=== PATIENT | female | born 1960 | race Caucasian/White ===

== ENCOUNTER 2017-01-29 11:07 | Observation (INO) | payer OTHER ==
[~2017-01-29] VITALS: Ht 154.9 cm; Wt 95.6 kg
[2017-01-29] VITALS (9 sets, daily range): BP systolic 101–128; BP diastolic 63–82
--- NOTE | 2017-01-29 12:49 | ED ORDER SUMMARY ---
..... Patient: ANNETTE CARMEN OrderSheet [facility] VisitID: [id number] [place] [address] 56y, F Registration Date/Time: 01/29/2017 ORDER SHEET Weight: 93.4 kg (stated) Allergies: Phenobarbital GENERAL ORDERS: CBC w Diff Urgent (11:01/29/2017 Arianna Olguin) (Ack 11:21 Brian) (11:52 SStone R.N.) CMP Urgent (11:01/29/2017 Arianna Olguin) (Ack 11:21 Brian) (11:52 SStone R.N.) UA-Culture if indicated Urgent (:01/29/2017 Arianna Olguin) (Ack 11:21 Brian) (12:44 SStone R.N.) PT with INR Urgent (11:01/29/2017 Arianna Olguin) (Ack 11:21 Brian) (11:52 SStone R.N.) Lipase Urgent (11:01/29/2017 Arianna Olguin) (Ack 11:21 Brian) (11:52 SStone R.N.) US Abdomen Limited (No) Urgent (11:01/29/2017 Arianna Olguin) (Ack 11:58 Brian) MEDICATION ORDERS: Phenergan IV 12.5 mg (HIGH ALERT MEDICATION, NOW) (12:01/29/2017 Arianna Olguin) (12:44 SStone R.N.) IV FLUIDS: IV NS : initial bolus 1000 mL (1000 mL/hr), then none - for X1 (NOW) (11:01/29/2017 Arianna Olguin) (11:44 SStone R.N.) Morphine IV 4 mg (HIGH ALERT MEDICATION, NOW) (11:01/29/2017 Arianna Olguin) (11:44 SStone R.N.) Zofran IV 4 mg (NOW) (11:01/29/2017 Arianna Olguin) (11:42 SStone R.N.) Morphine IV 4 mg (HIGH ALERT MEDICATION, NOW) (12:35 01/29/2017 Arianna lOguin) (12:43 SStone R.N.) Zosyn IV 4.5 gm/100mL (NOW) (14:41 01/29/2017 Arianna Olguin) (Cancelled: Duplicate Order14:44 Arianna Olguin) IV Lactated Ringers : initial bolus none -, then 125 mL/hr (NOW) (14:42 01/29/2017 Arianna Olguin) (14:50 SStone R.N.) Flagyl IV 500 mg/100mL (NOW) (14:44 01/29/2017 Arianna Olguin) Levaquin IV 750 mg/150 mL (NOW) (14:44 01/29/2017 Arianna Olguin) (14:51 SStone R.N.) Morphine IV 4 mg (NOW) (16:08 01/29/2017 SStone R.N. verbal order read back to Arianna Olguin) (16:08 SStone R.N.) ORDER SHEET NOTES: [Electronically signed by Angelique Monzon R.N. (16:12 01/29/2017)] [Electronically signed by Jax Govea Dr. (22:08 01/29/2017)] [Electronically locked/signed by Angelique Monzon R.N. (16:12 01/29/2017)]
--- NOTE | 2017-01-29 12:49 | ED CLINICAL REPORT ---
Clinical Report - Physicians/Mid Levels [facility] [address] [place] [address] 01/29/2017 11:12 Patient: ANNETTE CARMEN Time Seen: 1120. Arrived- By private vehicle. Historian- patient. HISTORY OF PRESENT ILLNESS Chief Complaint: ABDOMINAL PAIN. At its maximum, severity described as moderate. When seen in the E.D., severity described as moderate. Modifying factors. Not worsened by anything. Not relieved by anything. It is described as sharp. No radiation. It is described as located in the epigastric area. This started yesterday and is still present and worsening. It was abrupt in onset and has been intermittent but is not gone now. The patient has had nausea. No loss of appetite, vomiting or diarrhea. No additional abdominal pain. No recent travel. Similar symptoms previously: Once (about a week ago). Recent medical care: The patient was seen recently by a health care provider. REVIEW OF SYSTEMS No constipation, black stools, hematemesis, bloody stools or fever. No chest pain, difficulty breathing or chills. All systems otherwise negative, except as recorded above. PAST HISTORY See nurses notes. SOCIAL HISTORY Never smoker. No alcohol use or drug use. No recent travel. Is a local resident. FAMILY HISTORY No family history of gall bladder problems. ADDITIONAL NOTES The nursing notes have been reviewed. PHYSICAL EXAM Vital Signs: 01/29/2017 11:19 BP: 151/102. HR: 62. RR: 22. O2 saturation: 100%. Temp: 97.8 F. Pain level now: 10/10. Blood pressure normal. Oxygen saturation normal. Appearance: Alert. Oriented X3. No acute distress. Eyes: Pupils equal, round and reactive to light. Scleral icterus. Eyes normal inspection. ENT: Ears normal. Nose normal. Pharynx normal. Neck: Normal inspection. Neck supple. CVS: Normal heart rate and rhythm. Heart sounds normal. Pulses normal. Respiratory: No respiratory distress. Breath sounds normal. Chest nontender. No rales, rhonchi or wheezes. Abdomen: Soft. Moderate tenderness in the right upper quadrant. Positive Piña's sign. No guarding, rebound tenderness or obturator or psoas sign present. Bowel sounds normal. No organomegaly. No mass. Skin: Skin warm and dry. Normal skin color. No rash. Normal skin turgor. Extremities: Extremities exhibit normal ROM. No lower extremity edema. Neuro: Oriented X 3. No motor deficit. No sensory deficit. LABS, X-RAYS, AND EKG Abdominal Sonogram: (PROCEDURE: US ABDOMEN ULTRASOUND-LIMITED INDICATION: EPIGASTRIC ABDO PAIN TECHNIQUE: No scale and color Doppler sonographic images were obtained of the right upper quadrant. COMPARISON: None. FINDINGS: The liver is at the upper limits of normal and mildly hyperechoic in echo texture. No mass or biliary dilatation. There is a 3.9 cm non mobile gallstone in the neck of the gallbladder despite change in patient position. The gallbladder wall is variable size but ranges up to 4.6 mm. The gallbladder itself is elongated measuring up to 16.6 cm in length. Internally, there is dependent sludge and occasional septation. The gallbladder wall is slightly hyperemic. There was a positive Piña's sign per the technologist. No extrahepatic biliary dilatation. Common hepatic duct measures about 4.5 mm. Common bile duct was not well seen due to gallstone shadowing. The visible portion of the inferior vena cava, abdominal aorta, and portal vein appear normal with appropriate direction of flow in the portal vein. The right kidney is normal measuring 10.8 cm. No free fluid in the right upper quadrant. IMPRESSION: 1. Findings suggestive of acute calculus cholecystitis. 2. Minimal hepatic steatosis.). The study was independently viewed by me and interpreted by the radiologist. The study was discussed with the radiologist (via phone and pacs). Laboratory Tests: CBC w Diff: (MINA: 01/29/2017 11:25) ( MsgRcvd 01/29/2017 11:42) Final results Test Result Flag Units (Reference) WHITE BLOOD COUNT 13.2 H K/uL (4.5-11.5) RED BLOOD COUNT 4.23 M/uL (4.00-5.20) HEMOGLOBIN 12.7 gm/dL (12.0-16.0) HEMATOCRIT 37.5 % (36.0-46.0) MEAN CELL VOLUME 89 fL (80-100) MEAN CORPUSCULAR HGB 30 pg (26-34) MEAN CORPUSCULAR HGB CONC 34 g/dL (31-37) RED CELL DISTRIBUTION WIDTH 13.9 % (11.6-14.8) PLATELET COUNT 362 K/uL (150-400) NEUTROPHIL % 83.6 H % (50-75) LYMPH % 10.5 L % (25-40) MONO % 5.5 % (3-14) EOSINOPHIL % 0.1 % (0-4) BASOPHIL % 0.3 % (0-2) PT with INR: (MINA: 01/29/2017 11:25) ( [facility] 01/29/2017 12:15) Final results Test Result Flag Units (Reference) INR 0.9 (0.8-1.2) Low Intensity Therapy: INR 1.5-2.0 PT range 18.5-23.1Mod.Intensity Therapy: INR 2.0-3.0 PT range 23.1-31.5High Intensity Therapy: INR 2.5-3.5 PT range 27.4-35.5High Intensity Therapy 2: INR 3.0-4.0 PT range 31.5-39.3 CMP: (MINA: 01/29/2017 11:25) ( [facility] 01/29/2017 11:53) Final results Test Result Flag Units (Reference) GLUCOSE 108 mg/dL (70-110) BUN 12 mg/dL (7-18) CREATININE 0.9 mg/dL (0.6-1.3) Estimated GFR >60 mL/min Estimated GFR- >60 mL/min Note: Persistent reduction over 3 months in eGFR<60 mL/min/1.73 m2 defines CKD. Patients with eGFR values>=60 mL/min/1.73 m2 may also have CKD if evidence ofpersistent proteinuria. Additional information may be foundat www.kidney.org. SODIUM 139 mmol/L (136-145) POTASSIUM 3.8 mmol/L (3.5-5.1) CHLORIDE 100 mmol/L (98-107) CARBON DIOXIDE 28 mmol/L (21-32) CALCIUM 9.3 mg/dL (8.5-10.1) TOTAL PROTEIN 8.4 H g/dL (6.4-8.2) ALBUMIN 3.6 g/dL (3.3-5.0) BILIRUBIN, TOTAL 0.4 mg/dL (0.0-1.0) ALKALINE PHOSPHATASE 98 U/L (46-116) AST (SGOT) 22 U/L (15-37) ALT (SGPT) 37 U/L (12-78) LIPASE 141 U/L (73-393) . PROGRESS AND PROCEDURES Course of Care: the patient is a pleasant 56-year-old female presented for evaluation of epigastric abdominal pain. At this time differential diagnosis includes acute cholecystitis, cholelithiasis, hepatitis, and urinary tract infection. Patient be evaluated laboratory studies including ULTRASOUND of the right upper quadrant of the abdomen. Patient is agreeable to the treatment plan. Patient is nontoxic. patient's workup was remarkable for the findings above. Patient with acute cholecystitis. Spoke to Dr. Campoverde the general surgeon who recommended patient be admitted under his service. abdomen orders have been placed. Patient has been started on antibiotics per general surgery's recommendations. White count is noted to be elevated at 13.2. Patient's liver enzymes and lipase is noted to be normal. Had a discussion with the patient in regards to herworkup here in emergency department including diagnosis, and plan of care. All questions have been answered. The patient expressed understanding of these instructions and was agreeable to them. Prior to patient's departure from the emergency department she is noted to have improved symptoms with pain. Patient continues to be nontoxic and in no acute distress. Patient is stable for the floor. Do not feel patient needs to be admitted to intensive care unit. Critical care performed (35 minutes). Time is exclusive of separately billable procedures. Time includes: direct patient care, patient reassessment, coordination of patient care, review of patient's medical records, medical consultation, family consultation regarding treatment decisions and documentation of patient care. Disposition: Discharged. Condition: good. (Electronically signed by Jax Govea Dr. 01/29/2017 22:08)
--- NOTE | 2017-01-29 12:49 | ED ORDER SUMMARY ---
..... Patient: ANNETTE CARMEN OrderSheet [facility] VisitID: [id number] [place] [address] 56y, F Registration Date/Time: 01/29/2017 ORDER SHEET Weight: 93.4 kg (stated) Allergies: Phenobarbital GENERAL ORDERS: CBC w Diff Urgent (11:01/29/2017 Arianna Olguin) (Ack 11:21 Brian) (11:52 SStone R.N.) CMP Urgent (11:01/29/2017 Arianna Olguin) (Ack 11:21 Brian) (11:52 SStone R.N.) UA-Culture if indicated Urgent (:01/29/2017 Arianna Olguin) (Ack 11:21 Brian) (12:44 SStone R.N.) PT with INR Urgent (11:01/29/2017 Arianna Olguin) (Ack 11:21 Brian) (11:52 SStone R.N.) Lipase Urgent (11:01/29/2017 Arianna Olguin) (Ack 11:21 Brian) (11:52 SStone R.N.) US Abdomen Limited (No) Urgent (11:01/29/2017 Arianna Olguin) (Ack 11:58 Brian) MEDICATION ORDERS: Phenergan IV 12.5 mg (HIGH ALERT MEDICATION, NOW) (12:01/29/2017 Arianna Olguin) (12:44 SStone R.N.) IV FLUIDS: IV NS : initial bolus 1000 mL (1000 mL/hr), then none - for X1 (NOW) (11:01/29/2017 Arianna Olguin) (11:44 SStone R.N.) Morphine IV 4 mg (HIGH ALERT MEDICATION, NOW) (11:01/29/2017 Arianna Olguin) (11:44 SStone R.N.) Zofran IV 4 mg (NOW) (11:01/29/2017 Arianna Olguin) (11:42 SStone R.N.) Morphine IV 4 mg (HIGH ALERT MEDICATION, NOW) (12:35 01/29/2017 Arianna Olguin) (12:43 SStone R.N.) Zosyn IV 4.5 gm/100mL (NOW) (14:41 01/29/2017 Arianna Olguin) (Cancelled: Duplicate Order14:44 Arianna Olguin) IV Lactated Ringers : initial bolus none -, then 125 mL/hr (NOW) (14:42 01/29/2017 Arianna Olguin) (14:50 SStone R.N.) Flagyl IV 500 mg/100mL (NOW) (14:44 01/29/2017 Arianna Olguin) Levaquin IV 750 mg/150 mL (NOW) (14:44 01/29/2017 Arianna Olguin) (14:51 SStone R.N.) Morphine IV 4 mg (NOW) (16:08 01/29/2017 SStone R.N. verbal order read back to Arianna Olguin) (16:08 SStone R.N.) ORDER SHEET NOTES: [Electronically signed by Angelique Monzon R.N. (16:12 01/29/2017)] [Electronically signed by Jax Govea Dr. (22:08 01/29/2017)] [Electronically locked/signed by Angelique Monzon R.N. (16:12 01/29/2017)]
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
--- NOTE | 2017-01-29 13:34 | DIAGNOSTIC IMAGING REPORT ---
PROCEDURE: US ABDOMEN ULTRASOUND-LIMITED INDICATION: EPIGASTRIC ABDO PAIN TECHNIQUE: No scale and color Doppler sonographic images were obtained of the right upper quadrant. COMPARISON: None. FINDINGS: The liver is at the upper limits of normal and mildly hyperechoic in echo texture. No mass or biliary dilatation. There is a 3.9 cm non mobile gallstone in the neck of the gallbladder despite change in patient position. The gallbladder wall is variable size but ranges up to 4.6 mm. The gallbladder itself is elongated measuring up to 16.6 cm in length. Internally, there is dependent sludge and occasional septation. The gallbladder wall is slightly hyperemic. There was a positive Piña's sign per the technologist. No extrahepatic biliary dilatation. Common hepatic duct measures about 4.5 mm. Common bile duct was not well seen due to gallstone shadowing. The visible portion of the inferior vena cava, abdominal aorta, and portal vein appear normal with appropriate direction of flow in the portal vein. The right kidney is normal measuring 10.8 cm. No free fluid in the right upper quadrant. IMPRESSION: 1. Findings suggestive of acute calculus cholecystitis. 2. Minimal hepatic steatosis. 3. Findings discussed with Dr. Govea in the emergency room.
--- NOTE | 2017-01-29 16:45 | NUR ---
PT ARRIVED TO ROOM 202 AT 1602 VIA STRETCHER AND CLASSIFIED ADVERTISING CLERK. A&Ox4. PT ABLE TO WALK FROM STRETCHER TO BED WITH SBA. STATES SHE FELT DIZZY. C/O ABDOMINAL PAIN THAT WAS TOLERABLE. AT SIDE. PT MADE COMFORTABLE IN BED. LEVAQUIN IV RUNNING AND IVF'S TRANSFERRED FROM ED. ED RN REPORTS PT HAS ORDER FOR FLAGYL PREOP AND IT WAS NOT GIVEN IN ED. I HAVE SEEN NO ORDERS FOR THIS MEDICATION AND SO IT WAS NOT GIVEN. LEVAQUIN FINISHED BEFORE SURGERY. CONSENT SIGNED AND WITNESSED. PT HAD NO FURTHER QUESTIONS ABOUT PROCEDURE. PT TO PREOP AT 1637 AND AT SIDE.
[2017-01-29] MEDS ORDERED: NORCO1 TA1 PO (18:39)
--- NOTE | 2017-01-29 18:40 | Provider's Discharge Care Plan ---
Problem, Goal, Plan Problem List 1. Acute cholecystitis
--- NOTE | 2017-01-29 18:40 | Provider's Discharge Care Plan ---
Problem, Goal, Plan Problem List 1. Acute cholecystitis
--- NOTE | 2017-01-29 18:44 | DIAGNOSTIC IMAGING REPORT ---
PROCEDURE: XR INTRAOPERATIVE LAP BRENNAN INDICATION: LAP BRENNAN WITH IOC TECHNIQUE: Intraoperative fluoroscopy provided for Dr. Osorio performing an intraoperative cholangiogram following cholecystectomy. Total fluoroscopy time 12 seconds. Cumulative dose 6.9 mGy. COMPARISON: None. FINDINGS: Four intraoperative fluoroscopic spot images of the right upper quadrant of the abdomen demonstrate cannulation of the cystic duct stump and opacification of the intrahepatic and extrahepatic biliary tree. There are no filling defects. There is normal passage of contrast into the duodenum. IMPRESSION: 1. Negative intraoperative cholangiogram.
--- NOTE | 2017-01-29 19:13 | NUR ---
ACTIVELY MOVING ABOUT, RESTLESS ON ARRIVAL TO PACU. CO SHOULDER DISCOMFORT, INABILITY TO BREATH, ANXIOUS
--- NOTE | 2017-01-29 19:23 | NUR ---
REPORTS FEELING BETTER FOLLOWING 2 DOSES IV FENTANYL, ORAL CARE.
--- NOTE | 2017-01-29 19:52 | NUR ---
PT RETURNED TO ROOM 202 FROM PACU AT 1940 VIA BED AND FAMILY SPECIALIST. PT AWAKE AND ALERT BUT DROWSY AND SLIGHTLY CONFUSED ABOUT WHO IS WHO. ONCE SETTLED IN ROOM PT BECAME TEARY EYED AND STATED TO RN "YOU ARE THE FIRST SIGN TO ME OF NORMAL. ONCE I SAW YOU I KNEW WHERE I WAS". REASSURED PT THAT SHE IS IN THE ROOM SHE STARTED IN AND SHE IS SAFE. TOLD HER IT IS OK TO SLEEP AND REST. FAMILY AT BEDSIDE. TROCHAR SITES X3 C/D/I. PT DENIES NAUSEA AND PAIN AT THIS TIME. WCTM.
--- NOTE | 2017-01-29 19:53 | NUR ---
GIVE 2 THUMBS UP FOR PAIN RELIEF, CALM AT TIME OF TRANSFER TO ROOM. ABLE TO CDB WITH ABDOMINAL SUPPORT. DROWSY AT TIMES, AWAKENS EASILY, MAINTAINS SAOS >95 % WITH O2/NC
--- NOTE | 2017-01-29 20:46 | CONSULTATION REPORT ---
DATE OF CONSULTATION: 01/29/2017 CHIEF COMPLAINT: 1. Right upper quadrant abdominal pain HISTORY OF PRESENT ILLNESS: The patient is a 56-year-old woman was feeling fine until yesterday when about 6 p.m. she developed sharp, right upper quadrant abdominal pain, which has been relentless since then. She reports no previous history of pains like this. There is no previous history of jaundice or pancreatitis. MEDICAL/SURGICAL HISTORY: Past medical history: Cutaneous psoriasis. She has some shoulder pains, but it is unclear whether this is psoriatic. Past surgeries: Include uncomplicated C-sections in 1990, 1991, 1994. She is G4, P4. MEDICATIONS: 1. ALLERGIES: 1. 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 She is . She does not smoke cigarettes or take alcohol. FAMILY HISTORY: She has had several various cancers in the family, including colon cancer in her grandparent. REVIEW OF SYSTEMS: A multipoint review of systems was obtained, per questionnaire, on 01/29/2017. Pertinent positives include fatigue, rashes, abdominal pain, but is otherwise negative. PHYSICAL EXAMINATION: VITAL SIGNS: Temperature is 97.7, pulse is 72, respirations 18, blood pressure 128/82. The patient's room air saturation is 97%. Her height is 60 inches, weight 93.4 kg, BMI 40. HEENT: Her ears and nose demonstrated no gross external lesions. Eyes are equal. There is no icterus. NECK: Without palpable masses or thyromegaly. CHEST: Clear without wheeze or rales. HEART: Regular, without murmur or gallop. ABDOMEN: Reveals localized tenderness in the right upper quadrant with localized involuntary guarding. There is no ascites. No hepatosplenomegaly. EXTREMITIES: Symmetric and she appears to move without restriction. LAB/IMAGING: Lab tests: The white count is elevated at 13.2, hemoglobin, hematocrit 12.7 and 37.5. INR is 1.9. Chemistries: Show normal electrolytes. Normal liver functions and normal bilirubin. Ultrasound report: Shows a 3.9 cm nonmobile gallstone in the gallbladder neck with a hyperemic gallbladder wall and positive ultrasonic Piña sign. IMPRESSION: 1. Acute cholecystitis. PLAN: I have recommended the patient to undergo laparoscopic cholecystectomy with cholangiography. I explained to the patient and her the nature of this operation, as well as alternatives, benefits and risks. Risks discussed included infection, bleeding, scars, pain, damage to local structures, common duct stones, postoperative pancreatitis, bile leaks, and others. They appeared to understand these and other considerations and would like to proceed with surgery as described to them.
--- NOTE | 2017-01-29 20:57 | OPERATIVE REPORT ---
DATE OF SURGERY: 01/29/2017 SURGEON: Boston Osorio MD PREOPERATIVE DIAGNOSIS: 1. Acute cholecystitis POSTOPERATIVE DIAGNOSIS: 1. Acute cholecystitis PROCEDURE PERFORMED: 1. Laparoscopic cholecystectomy, cholangiography ANESTHESIA: General. INDICATIONS: The patient is a 56-year-old woman presenting with acute, persistent right upper quadrant abdominal pain and cholelithiasis. SURGICAL TECHNIQUE: The patient was taken to the operating room where a general anesthetic was administered and patient prepped and draped in the usual sterile fashion. A local anesthetic of 0.5% Marcaine with epinephrine was used at each trocar site. An incision was made in the umbilicus and a Veress needle used to insufflate. A 10 mm cannula was passed and visualization was obtained. Three additional cannulae were placed in their usual location. The gallbladder was found be edematous and tightly distended. An Angiocath was used to allow mucal bile under pressure to issue forth from the gallbladder. There appeared to be a large stone in the neck of the gallbladder. The gallbladder was elevated and dissection was started down just below the stone. The neck of the gallbladder was isolated at the cystic duct and a clip was placed. A fluoroscopic cholangiogram was carried out, which revealed free flow into the duodenum and no filling defects in the common duct system. The gallbladder was doubly clipped and divided. The cystic artery clipped and divided and gallbladder stripped from the gallbladder fossa using electrocautery. The gallbladder was delivered to the upper midline trocar site where it was emptied of contents using a Katina forceps and a suction cannula. The empty gallbladder was submitted. The gallbladder bed was inspected and found to be hemostatic with no evidence of bile leak. Irrigation and suction were used to cleanse the right upper quadrant. All free fluid was suctioned away, additional Marcaine instilled and gas evacuated. The midline skin sites were closed with interrupted subcuticular 4-0 Vicryl suture. All sites received Steri-Strips and dressings. The patient left in good condition.
--- NOTE | 2017-01-29 22:08 | ED MAR SUMMARY ---
..... Medication Administration Record [facility] [address] [place] [address] Patient: ANNETTE CARMEN Visit ID: [id number] 56y, F Weight: 93.4 kg Height/Length: 60 in BMI: 40.2 ALLERGIES: Phenobarbital Start 11:29 01/29/2017 Angelique Monzon R.N., Stop 12:25 01/29/2017 Angelique Monzon R.N. Medication Administered: IV NS (SALINE), Dose: IV Fluids over 1 hour(s), Rate: 1000 mL/hr, Dispensed: 1000 mL bag, Site: #1. Medication Ordered: IV NS : initial bolus 1000 mL (1000 mL/hr), then none - for X1 (NOW). Given 11:37 01/29/2017 Angelique Monzon R.N. Medication Administered: ZOFRAN [IVP] (ONDANSETRON HCL), Dose: 4 mg IVP over 2 minute(s), Site: #1. Medication Ordered: Zofran IV 4 mg (NOW). Given 11:43 01/29/2017 Angelique Monzon R.N. Medication Administered: MORPHINE [IVP], Dose: 4 mg IVP over 2 minute(s), Site: #1 left AC. Medication Ordered: Morphine IV 4 mg (HIGH ALERT MEDICATION, NOW). Given 12:38 01/29/2017 Angelique Monzon R.N. Medication Administered: MORPHINE [IVP], Dose: 4 mg IVP over 2 minute(s), Site: #1 left AC. Medication Ordered: Morphine IV 4 mg (HIGH ALERT MEDICATION, NOW). Given 12:39 01/29/2017 Angelique Monzon R.N. Medication Administered: PHENERGAN [IVP] (PROMETHAZINE HCL), Dose: 12.5 mg IVP over 5 minute(s), Site: #1 left AC. Medication Ordered: Phenergan IV 12.5 mg (HIGH ALERT MEDICATION, NOW). Start 14:50 01/29/2017 Angelique Monzon R.N., Stop 15:40 01/29/2017 Angelique Monzon R.N. Medication Administered: IV LACTATED RINGERS, Dose: IV Fluids over 6 hour(s), Rate: 125 mL/hr, Dispensed: 1000 mL bag, Site: #1 left AC. Medication Ordered: IV Lactated Ringers : initial bolus none -, then 125 mL/hr (NOW). Start 14:51 01/29/2017 Angelique Monzon R.N. Medication Administered: LEVAQUIN [IVPB] (LEVOFLOXACIN), Dose: 750 mg IVPB over 1.5 hour(s), Rate: 100 mL/hr, Dispensed: 150 mL bag, Site: #1 left AC. Medication Ordered: Levaquin IV 750 mg/150 mL (NOW). Given 15:53 01/29/2017 Angelique Monzon R.N. Medication Administered: MORPHINE [IVP], Dose: 4 mg IVP over 2 minute(s), Site: #1 left AC. Medication Ordered: Morphine IV 4 mg (NOW).
--- NOTE | 2017-01-29 22:08 | ED MED RECONCILIATION SUMMARY ---
Patient: ANNETTE CARMEN Medication Reconciliation Report [facility] VisitID: [id number] [address] [place] [address] 56y, F Registration Date/Time: 01/29/2017 Weight: 93.4 kg Height/Length: 60 in. BMI: 40.2 ALLERGIES: Phenobarbital The patient's Home Medications are listed below: NONE. The source(s) of the original Home Medication information: Not obtained. The following Medications were given to the patient in the Emergency Department: Zofran [IVP] IVP 4 mg, administered: 01/29/2017 11:37:00 AM Morphine [IVP] IVP 4 mg, administered: 01/29/2017 11:43:00 AM IV NS IV Fluids bolus 0, then 1000 mL/hr, administered: 01/29/2017 11:29:00 AM Morphine [IVP] IVP 4 mg, administered: 01/29/2017 12:38:00 PM PHENERGAN [IVP] IVP 12.5 mg, administered: 01/29/2017 12:39:00 PM IV LACTATED RINGERS IV Fluids bolus 0, then 125 mL/hr, administered: 01/29/2017 2:50:00 PM Levaquin [IVPB] IVPB bolus 0, then 750 mg 100 mL/hr, administered: 01/29/2017 2:51:00 PM Morphine [IVP] IVP 4 mg, administered: 01/29/2017 3:53:00 PM The following Medications were prescribed to the patient: None.
--- NOTE | 2017-01-29 22:08 | ED MAR SUMMARY ---
..... Medication Administration Record [facility] [address] [place] [address] Patient: ANNETTE CARMEN Visit ID: [id number] 56y, F Weight: 93.4 kg Height/Length: 60 in BMI: 40.2 ALLERGIES: Phenobarbital Start 11:29 01/29/2017 Angelique Monzon R.N., Stop 12:25 01/29/2017 Angelique Monzon R.N. Medication Administered: IV NS (SALINE), Dose: IV Fluids over 1 hour(s), Rate: 1000 mL/hr, Dispensed: 1000 mL bag, Site: #1. Medication Ordered: IV NS : initial bolus 1000 mL (1000 mL/hr), then none - for X1 (NOW). Given 11:37 01/29/2017 Angelique Monzon R.N. Medication Administered: ZOFRAN [IVP] (ONDANSETRON HCL), Dose: 4 mg IVP over 2 minute(s), Site: #1. Medication Ordered: Zofran IV 4 mg (NOW). Given 11:43 01/29/2017 Angelique Monzon R.N. Medication Administered: MORPHINE [IVP], Dose: 4 mg IVP over 2 minute(s), Site: #1 left AC. Medication Ordered: Morphine IV 4 mg (HIGH ALERT MEDICATION, NOW). Given 12:38 01/29/2017 Angelique Monzon R.N. Medication Administered: MORPHINE [IVP], Dose: 4 mg IVP over 2 minute(s), Site: #1 left AC. Medication Ordered: Morphine IV 4 mg (HIGH ALERT MEDICATION, NOW). Given 12:39 01/29/2017 Angelique Monzon R.N. Medication Administered: PHENERGAN [IVP] (PROMETHAZINE HCL), Dose: 12.5 mg IVP over 5 minute(s), Site: #1 left AC. Medication Ordered: Phenergan IV 12.5 mg (HIGH ALERT MEDICATION, NOW). Start 14:50 01/29/2017 Angelique Monzon R.N., Stop 15:40 01/29/2017 Angelique Monzon R.N. Medication Administered: IV LACTATED RINGERS, Dose: IV Fluids over 6 hour(s), Rate: 125 mL/hr, Dispensed: 1000 mL bag, Site: #1 left AC. Medication Ordered: IV Lactated Ringers : initial bolus none -, then 125 mL/hr (NOW). Start 14:51 01/29/2017 Angelique Monzon R.N. Medication Administered: LEVAQUIN [IVPB] (LEVOFLOXACIN), Dose: 750 mg IVPB over 1.5 hour(s), Rate: 100 mL/hr, Dispensed: 150 mL bag, Site: #1 left AC. Medication Ordered: Levaquin IV 750 mg/150 mL (NOW). Given 15:53 01/29/2017 Angelique Monzon R.N. Medication Administered: MORPHINE [IVP], Dose: 4 mg IVP over 2 minute(s), Site: #1 left AC. Medication Ordered: Morphine IV 4 mg (NOW).
--- NOTE | 2017-01-29 22:08 | ED MED RECONCILIATION SUMMARY ---
Patient: ANNETTE CARMEN Medication Reconciliation Report [facility] VisitID: [id number] [address] [place] [address] 56y, F Registration Date/Time: 01/29/2017 Weight: 93.4 kg Height/Length: 60 in. BMI: 40.2 ALLERGIES: Phenobarbital The patient's Home Medications are listed below: NONE. The source(s) of the original Home Medication information: Not obtained. The following Medications were given to the patient in the Emergency Department: Zofran [IVP] IVP 4 mg, administered: 01/29/2017 11:37:00 AM Morphine [IVP] IVP 4 mg, administered: 01/29/2017 11:43:00 AM IV NS IV Fluids bolus 0, then 1000 mL/hr, administered: 01/29/2017 11:29:00 AM Morphine [IVP] IVP 4 mg, administered: 01/29/2017 12:38:00 PM PHENERGAN [IVP] IVP 12.5 mg, administered: 01/29/2017 12:39:00 PM IV LACTATED RINGERS IV Fluids bolus 0, then 125 mL/hr, administered: 01/29/2017 2:50:00 PM Levaquin [IVPB] IVPB bolus 0, then 750 mg 100 mL/hr, administered: 01/29/2017 2:51:00 PM Morphine [IVP] IVP 4 mg, administered: 01/29/2017 3:53:00 PM The following Medications were prescribed to the patient: None.
--- NOTE | 2017-01-29 22:33 | NUR ---
VSS. A&OX4. PT IS MUCH MORE ALERT AND AWAKE AT THIS TIME. SUSTAINED EYE OPENING. CARRYING ON CONVERSATIONS. EATING AND TOLERATING CLEAR LIQUIDS AT THIS TIME WITHOUT NAUSEA. TRYING GENERAL DIET NOW. AMBULATING TO BATHROOM X2. FAMILY AT BEDSIDE. STATES PAIN HAS BEEN TOLERABLE SINCE ARRIVING FROM PACU. NOT REQUESTING ANYTHING FOR PAIN AT THIS TIME. WCTM.
--- NOTE | 2017-01-30 00:47 | NUR ---
PT FELT WELL ENOUGH TO GO HOME. VSS ON ROOM AIR. TWO TROCHAR SITES C/D/I, THE THIRD HAD MINIMAL DRIED DRAINAGE. PT ALERT AND ORIENTED, CONVERSING, APPROPRIATE. PT EDUCATED ABOUT DISCHARGE INSTRUCTIONS, GIVEN DISCHARGE PACKET. ALL QUESTIONS ANSWERED.
== END 2017-01-30 00:15 | disposition home or self-care (01) ==
LOC: ED SRH 11:07 → TRANS SRH 13:13 → ACUTE2 SRH 16:10
PROVIDERS: Surgery; ADMIT Student in an Organized Health Care Education/Training Program
PROC: BF101ZZ Fluoroscopy of Bile Ducts using Low Osmolar Contrast (ICD-10-PCS; principal; 2017-01-29 15:45)
PROC: 0FT44ZZ Resection of Gallbladder, Percutaneous Endoscopic Approach (ICD-10-PCS; principal; 2017-01-29 15:45)
DX: K80.00 Calculus of gallbladder with acute cholecystitis without obstruction (principal)
CPT/HCPCS: 29229; 29230; 50002; 60001; 70002; 80102; 80212; 80248; 82794; 82807; 83339; 83348; 83587; 83920; 83937; 83982; 84038; 90004; 90100; 92235; 94060; 95059

== ENCOUNTER → 2017-02-05 | Outpatient (CLI) | payer OTHER ==
[~2017-02-05] MED LIST: NORCO1 TA1 PO
== END ==
LOC: LAB SRH 13:54
DX: R10.9 Unspecified abdominal pain (principal); Z90.49 Acquired absence of other specified parts of digestive tract
CPT/HCPCS: 90074; 90100; 95059

== ENCOUNTER → 2017-02-05 | Outpatient (CLI) | payer OTHER ==
--- NOTE | 2017-02-05 14:18 | DIAGNOSTIC IMAGING REPORT ---
PROCEDURE: US ABDOMEN ULTRASOUND-COMPLETE INDICATION: S/P LAP CHOLI,ABD PAIN TECHNIQUE: No scale and color Doppler sonographic images of the abdomen were obtained without comparison. COMPARISON: Abdominal ultrasound dated 01/29/2017 FINDINGS: The liver is slightly enlarged. No mass or intrahepatic biliary dilatation. The gallbladder is surgically absent. No pericholecystic fluid or Piña sign. The extrahepatic common duct is normal measuring 2.4 mm at the pancreatic head and 4.2 mm at the alex hepatis. The visualized pancreas is normal without ductal dilatation or peripancreatic fluid collection. The abdominal aorta is normal in its course and caliber. The retrohepatic inferior vena cava is patent. There is appropriate hepatopetal flow in the portal vein. The right kidney measures 11.1 cm in length. The left kidney measures 10.5 cm in length. Both kidneys demonstrate normal morphology and cortical thickness without hydronephrosis, cyst, solid mass, or shadowing calculus. Color Doppler imaging demonstrates normal blood flow in each kidney. The spleen is normal in size measuring 9.7 cm in length. There is no perihepatic or perisplenic ascites. IMPRESSION: 1. Slight hepatomegaly
== END ==
LOC: US SRH 12:52
DX: R10.9 Unspecified abdominal pain (principal); R16.0 Hepatomegaly, not elsewhere classified